=== PATIENT | male | born 1950 | race Caucasian/White ===

== ENCOUNTER 2024-10-15 18:57 | Emergency (ER) | payer MEDICARE, OTHER, SELFPAY ==
[2024-10-15 19:04] VITALS: BP 147/88
[2024-10-15 19:22] LABS: Hematocrit 42.6 % (39.0-52.0); Hemoglobin 14.7 g/dL (13.0-18.0); Mean Corp Hgb Conc. 34.5 g/dL (33.0-37.0); Mean Corpuscular Volume 89.9 fL (80.0-94.0); Nucleated Red Blood Cells % 0 % (-); Platelet Count 199 10^3/uL (130-400); Red Cell Dist. Width 12.6 % (11.5-14.5)
[2024-10-15 19:44] LABS: ALT (SGPT) 30 U/L (0-50); AST (SGOT) 30 U/L (17-59); Albumin 4.7 g/dl (3.5-5.0); Alkaline Phosphatase 50 U/L (38-126); Blood Urea Nitrogen 22 mg/dl (9-20); Calcium 9.7 mg/dl (8.4-10.2); Carbon Dioxide 27 mmol/L (22-30); Chloride 104 mmol/L (98-107); Glucose 111 mg/dl (70-99); Potassium 4.2 mmol/L (3.5-5.1); Sodium 137 mmol/L (135-145); Total Protein 7.2 g/dl (6.3-8.2); eGFR > 60.00
[2024-10-15 19:57] LABS: Troponin I < 0.012 ng/ml
[2024-10-15 20:28] VITALS: BMI 22.2
[2024-10-15 20:31] VITALS: BP 131/98
[2024-10-15 21:00] VITALS: BP 121/76
--- NOTE | 2024-10-15 21:44 | ED.GENMED ---
History of Present Illness
General
Chief Complaint: Chest Pain
Source: patient
Exam Limitations: none
Time Seen by Provider: 10/15/24 21:43
Nursing documentation reviewed up to this point in time: agreed with
History of Present Illness
History of Present Illness:
74-year-old male with history of HLD presents with concerns of radiating pain that began in his left hand, traveled up his left arm to his shoulder, across his upper back, and then across his upper chest. These symptoms initiated while the patient
was sitting, getting ready to eat dinner at approximately 6:00 PM, the pain lasted about two hours and resolved with massaging the areas. The arm felt numb, and the patient described it as tingling and tight, feeling amber to muscle cramping.
The patient reported experiencing similar symptoms intermittently over the past week but emphasized this particular event as more intense and persistent. The current symptoms had resolved before arrival at the facility and he remains asymptomatic.
The patient was concerned about the possibility of a heart attack due to previous family history, as both his father and brother have had significant cardiac events. Father PR in 50's lived to 80's, brother mult stents in his 60's
Past History
Past History
ED Past Medical History: Hypercholesterolemia
ED Past Surgical History: Appendectomy
Social History
Tobacco: Non-smoker
Alcohol: None
Personal:
Living: with family
Employment: Retired
Review of Systems
Review of Systems
Allergies reviewed?: Yes
All Other Systems: ROS reviewed and negative except as documented in HPI and ROS
Phy Exam
Physical Exam
Physical Exam:
General: Alert, no acute distress.
Skin: Warm, dry.
Neck: Supple,
Eyes, Ears, Nose, Mouth, and Throat: Oral mucosa moist.
Cardiovascular: Normal peripheral perfusion, No edema.
Respiratory: Respirations are non-labored.
Gastrointestinal: Abdomen nondistended.
Back: No spinal bony tenderness normal range of motion, Normal alignment. No tenderness to palpation of neck or back or chest wall.
Musculoskeletal: Normal range of motion, normal strength. Left upper extremity with full range of motion, nontender, distal neurovascular intact
Neurological: Alert and oriented to person, place, time, and situation, No focal neurological deficit observed.
Psychiatric: Cooperative, appropriate mood & affect.
Scores
Heart Score for Chest Pain Patients
STEMI patient?: Not applicable
Course
Orders/Labs/Results
Orders:
Orders
10/15/24 18:58
ECG [Electrocardiogram (*1)] Urgent
Reason for Study: Chest Pain
EKG- Treatment ONCE
10/15/24 19:10
Comprehensive Metabolic Panel Urgent
Troponin I Urgent
10/15/24 19:11
Complete Blood Count/With Diff Urgent
10/15/24 21:55
CR Chest - 2 Views Urgent
Comment:
Reason For Exam: chest pain
10/15/24 22:02
Troponin I Urgent
Abnormal Lab Results
10/15/24 10/15/24
19:10 19:11
Absolute Monos (auto) 0.7 H 10^3/uL
(0.1-0.6)
Monocytes % 11.0 H %
(1.7-9.3)
BUN 22 H mg/dl
(9-20)
Glucose 111 H mg/dl
(70-99)
10/15/24 19:11
10/15/24 19:10
Vital Signs
Initial and Last Documented VS:
Initial Vital Signs
Temp Pulse Resp BP Pulse Ox
98.2 F 73 16 147/88 98
10/15/24 19:04 10/15/24 19:04 10/15/24 19:04 10/15/24 19:04 10/15/24 19:04
Last Documented Vital Signs
Temp Pulse Resp BP Pulse Ox
98.2 F 61 14 122/88 97
10/15/24 19:04 10/15/24 23:45 10/15/24 23:45 10/15/24 23:21 10/15/24 23:45
MDM/Problems Addressed
Differential Diagnosis Includes:
1. Angina pectoris
2. Myocardial infarction
3. Musculoskeletal pain
4. Gastroesophageal reflux disease
5. Aortic dissection
6. Pericarditis
7. Pleural effusion
MDM/Problems Addressed:
74-year-old male with history of HLD presents with concerns of radiating pain that began in his left hand, traveled up his left arm to his shoulder, across his upper back, and then across his upper chest. These symptoms initiated while the patient
was sitting, getting ready to eat dinner at approximately 6:00 PM, the pain lasted about two hours and resolved with massaging the areas. The arm felt numb, and the patient described it as tingling and tight, feeling amber to muscle cramping.
The patient reported experiencing similar symptoms intermittently over the past week but emphasized this particular event as more intense and persistent. The current symptoms had resolved before arrival at the facility and he remains asymptomatic.
The patient was concerned about the possibility of a heart attack due to previous family history, as both his father and brother have had significant cardiac events. Father PR in 50's lived to 80's, brother multiple stents in his 60's
EKG: NSR
Plan:
- CBC and serial troponin levels to rule out cardiac ischemia; initial troponin normal, pending repeat test.
- Chest X-ray.
- Referral to cardiology for further evaluation
CBC, CMP normal
Troponin normal
11:00 PM:
Troponin #2 is normal
Chest x-ray NAD
Patient has been asymptomatic during entire visit
Referred to Cardiac CP hotline
Referred to Primary care hotline has no PCP
*Pulse Oximetry
SaO2: 95
Oxygen Mode of Delivery: Room air
Patient hypoxic: no
*EKG
EKG Intrepretation Date: 10/15/24
Interpretation: normal
Heart Rate: 67
Rate: normal
Rhythm: sinus
[place]: normal axis
Interval: normal interval
QRS Pattern: normal QRS
Ischemia: no ischemia
*Critical Care Note
Total Time (30-74mins, 75-104mins- exclusive of procedures): Not Applicable
ED Attending Note
-
Portions of this chart may have been created with voice recognition software.� Occasional wrong word or��sound alike� substitutions may have occurred due to the inherent limitations of voice recognition software.
Discharge Plan
Departure
Patient Disposition: Home (Routine Discharge)
Date of Disposition: 10/15/24
Time of Disposition: 23:42
Patient with high blood pressure during this ER visit?: No
Condition: Good
Discharge Problem:
Radicular pain of left upper extremity, Atypical chest pain
Instructions: Chest Pain DCA Follow Up
Prescriptions:
No Action
multivitamin Tablet
1 tab PO DAILY
rosuvastatin 40 mg Tablet
40 mg PO DAILY
Referrals:
[facility] [Other]
NONE,* [Family Provider, Internal Medicine]
Activity Restrictions/Additional Instructions:
As we discussed, nothing worrisome in your workup here today. Specifically no sign of a heart attack.
Someone from the cardiology group will be calling you within a couple of days to set up a more thorough cardiac evaluation
I sent your contact information to our primary care provider hotline, someone should be calling you within the next few days to suggest a primary care provider
Interventions
Interventions:
*Risk Screen - Suicide Last Done: 10/15/24 19:04
*General Assessment Last Done: 10/15/24 20:28
*Neglect/Abuse Screening Last Done: 10/15/24 19:04
*ED- Fall Risk Assessment Last Done: 10/15/24 20:28
*ED COVID-19 Vaccine History Last Done: 10/15/24 20:28
*Nursing Disposition Last Done: 10/15/24 23:50
ED- Cardiac Assessment Last Done: 10/15/24 23:15
Discharge Date and Time
Discharge Date/Time: 10/15/24 23:50
Print Language: [place]
[2024-10-15 22:00] VITALS: BP 135/77
[2024-10-15 22:32] LABS: Troponin I < 0.012 ng/ml
[2024-10-15 23:21] VITALS: BP 122/88
== END 2024-10-15 23:50 | disposition home or self-care (01) ==
LOC: EMR 18:57
PROVIDERS: Emergency Medicine; Registered Nurse; EMERGENCY PHYSICIAN Emergency Medicine
DX: M54.10 Radiculopathy, site unspecified (principal); R07.89 Other chest pain; E78.00 Pure hypercholesterolemia, unspecified; M79.642 Pain in left hand
CPT/HCPCS: 99285; 71046; 80053; 84484; 85025; 93005

== ENCOUNTER → 2024-10-20 10:29 | Outpatient (REF) | payer MEDICARE, OTHER, SELFPAY | LOC: HWRAD 10:29 | DX: R20.2 Paresthesia of skin (principal) | CPT/HCPCS: 72050; 73030 ==